=== PATIENT | male | born 1990 | race Caucasian/White ===

== ENCOUNTER 2017-05-17 18:55 | Emergency (ER) | payer BC ==
--- NOTE | 2017-05-17 18:58 | EDM.PDOC ---
ED HPI GENERAL MEDICAL PROBLEM - General Chief Complaint: Respiratory Problem Stated Complaint: FEVER Time Seen by Provider: 05/17/17 18:58 Source of Information: Reports: Patient - History of Present Illness INITIAL COMMENTS - FREE TEXT/NARRATIVE: HISTORY AND PHYSICAL: History of present illness: []Patient presents with productive cough over the last day or 2 subjective fever no nausea vomiting chills sweats he does have body and joint ache general malaise Review of systems: As per history of present illness and below otherwise all systems reviewed and negative. Past medical history: As per history of present illness and as reviewed below otherwise noncontributory. Surgical history: As per history of present illness and as reviewed below otherwise noncontributory. Social history: No reported history of drug or alcohol abuse. Family history: As per history of present illness and as reviewed below otherwise noncontributory. Physical exam: HEENT: Atraumatic, normocephalic, pupils reactive, negative for conjunctival pallor or scleral icterus, mucous membranes moist, throat clear, neck supple, nontender, trachea midline. Lungs: Clear to auscultation, breath sounds equal bilaterally, chest nontender. Heart: S1S2, regular, negative for clicks, rubs, or JVD. Abdomen: Soft, nondistended, nontender. Negative for masses or hepatosplenomegaly. Negative for costovertebral tenderness. Pelvis: Stable nontender. Genitourinary: Deferred. Rectal: Deferred. Extremities: Atraumatic, negative for cords or calf pain. Neurovascular unremarkable. Neuro: Awake, alert, oriented. Cranial nerves II through XII unremarkable. Cerebellum unremarkable. Motor and sensory unremarkable throughout. Exam nonfocal. Diagnostics: []Chest 2 views Therapeutics: []DuoNeb Z-Romel HFA Impression: []Acute bronchitis Definitive disposition and diagnosis as appropriate pending reevaluation and review of above. sore throat Pain Score (Numeric/FACES): 8 - Related Data Allergies Allergy/AdvReac Type Severity Reaction Status Date / Time naproxen Allergy Blisters Verified 05/17/17 19:03 Home Meds: Home Meds . [No Known Home Meds] 05/17/17 [History] ED ROS GENERAL - Review of Systems Review Of Systems: ROS reveals no pertinent complaints other than HPI. ED EXAM, GENERAL - Physical Exam Exam: See Below Course - Vital Signs Last Recorded V/S: Last Vital Signs Temp 37.4 C 05/17/17 20:00 Pulse 100 05/17/17 20:00 Resp 18 05/17/17 20:00 BP 135/75 05/17/17 20:00 Pulse Ox 94 L 05/17/17 20:00 - Orders/Labs/Meds Meds: Medications Discontinued Medications Generic Name Dose Route Start Last Admin Trade Name Freq PRN Reason Stop Dose Admin Albuterol/Ipratropium 3 ml 05/17/17 19:11 05/17/17 19:24 Duoneb 3.0-0.5 Mg/3 Ml NEB 05/17/17 19:12 3 ml ONETIME ONE Administration Departure - Departure Time of Disposition: 08:00 Disposition: Home, Self-Care 01 Condition: Good Clinical Impression: Acute bronchitis - Discharge Information Instructions: Acute Bronchitis, [id number] Referrals: [facility] [Outside] Forms: ED Department Discharge
[2017-05-17] MEDS ORDERED: Albuterol/Ipratropium 3.0-0.5 MG/3 ML Neb Soln NEB ONE (19:11)
[2017-05-17 20:01] VITALS: BP 135/75
--- NOTE | 2017-05-18 10:48 | CR ---
EXAM DATE: 05/17/17 PATIENT'S AGE: 27 Patient: JEFERSON CALDERON Facility: [place], [place] Site . Site : 1990 Study: XRay Chest [id number] 7:45:18 PM Ordering Physician: Larissa Villeda Final Report: HISTORY: Cough, sore throat and body aches. FINDINGS: PA and lateral chest radiograph demonstrates a normal cardiac silhouette. Pulmonary vasculature and amie are normal. No lobar consolidation or pleural effusion is seen. Bony structures are normal. IMPRESSION: No acute cardiopulmonary disease or infiltrate. Dictated by Sharon Johnson MD @ 05/17/2017 8:15:19 PM Dictated by: Sharon Johnson MD @ 05/17/2017 20:15:23 (Electronic Signature) Report Signed by Proxy. [facility]
== END 2017-05-17 20:03 | disposition home or self-care (01) ==
LOC: MW.ED 18:55
DX: J20.9 Acute bronchitis, unspecified (principal); Z88.5 Allergy status to narcotic agent
CPT/HCPCS: 71020; 71020-26; 94664; 99283